=== PATIENT | male | born 1970 | race African-American/Black ===

== ENCOUNTER 2017-02-07 14:27 | Emergency (ER) | payer OTHER ==
[~2017-02-07] VITALS: Ht 190.5 cm; Wt 135.0 kg
[~2017-02-07 14:27] MED LIST: COLC1CAP3 PO; NAPR500T PO
[2017-02-07 14:28] VITALS: BP 144/74; PULSE 88; RESP 16; TEMP 98.2; O2SAT 99
[2017-02-07] MEDS ORDERED: IBUP800T23 PO (14:48)
--- NOTE | 2017-02-07 14:53 | PD ---
HPI Chief Complaint: Pain: Acute or Chronic Time Seen by Provider: 14:40 Travel History International Travel<30 days: No Contact w/Intl Traveler<30days: No Traveled to known affect area: No History of Present Illness HPI 46-year-old male presents for evaluation of right shoulder pain. He reports that 3 weeks ago he "slept on my right shoulder wrong"and since then he has had right shoulder pain. Pain is an aching pain primarily in the anterior aspect of the right shoulder which is worse with range of motion. He has limited range of motion associated with the pain. He has been using [id number] naproxen but symptoms persisted which prompted evaluation. He denies any numbness or tingling or chest pain or shortness of breath. He has no other complaints. His primary care physician is Dr. Hoyt. [facility] Past Medical History Gout: Yes Social History Alcohol Use: Yes (WEEKLY) Tobacco Use: Yes (2-3 CIGARS A NIGHT) Substance Use: No Allergies-Medications (Allergen,Severity, Reaction): Coded Allergies: No Known Allergies (Verified , 12/22/16) Reported Meds & Prescriptions Reported Meds & Active Scripts Active Ibuprofen 800 Mg Tab 800 Mg PO Q6HR PRN Colchicine 0.6 Mg Cap 0.6 Mg PO BID Reported Naproxen 500 Mg Tab 500 Mg PO DAILY Review of Systems Except as stated in HPI: all other systems reviewed are Neg Physical Exam Narrative GENERAL: Well-developed well-nourished male in no acute distress SKIN: Warm and dry. There is soft tissue swelling HEAD: Atraumatic. Normocephalic. EYES: Pupils equal and round. No scleral icterus. No injection or drainage. ENT: No nasal bleeding or discharge. Mucous membranes pink and moist. NECK: Trachea midline. No JVD. CARDIOVASCULAR: Regular rate and rhythm. No murmur appreciated. RESPIRATORY: No accessory muscle use. Clear to auscultation. Breath sounds equal bilaterally. MUSCULOSKELETAL: No obvious deformities. Pain with right shoulder range of motion. He is able to abduct his right shoulder to 70. He has pain with internal/external rotation. Has pain with passive range of motion of the right shoulder as well. There is no tenderness to palpation along the glenohumeral joint, clavicle, acromioclavicular joint of the right shoulder. There is no axillary lymphadenopathy. NEUROLOGICAL: Awake and alert. No obvious cranial nerve deficits. Motor grossly within normal limits. Normal speech. Data Data Last Documented VS Vital Signs Date Time Temp Pulse Resp B/P Pulse Ox O2 Delivery O2 Flow Rate FiO2 02/07/17 14:28 98.2 88 16 144/74 99 Orders Ketorolac Inj (Toradol Inj) (02/07/17 15:00) MDM Medical Decision Making Medical Screen Exam Complete: Yes Emergency Medical Condition: Yes Medical Record Reviewed: Yes Differential Diagnosis Right shoulder strain, rotator cuff tear, acromioclavicular separation, inflammatory arthritis, shoulder impingement Narrative Course 46-year-old male who reports that he slept on his right shoulder wrong presents now with 3 weeks of right shoulder pain with range of motion activities. Screening examination are consistent with shoulder strain. Patient will be discharged with 800 mg ibuprofen, sling for short-term use. Recommend follow- up with primary care physician in one week for recheck. Diagnosis Primary Impression: Right shoulder strain Qualified Code: S46.911A - Right shoulder strain, initial encounter Additional Instructions: Medication as needed. Take with meals. Sling for short-term 2-3 day use only. Perform passive range of motion actively several times a day as discussed. Follow-up with primary care physician in one week for recheck. Return for any emergent medical conditions. Med/Other Pt SpecificInfo: Prescription(s) given Scripts Ibuprofen 800 Mg Fal156 Mg PO Q6HR PRN (PAIN) #40 TAB Ref 0 Prov:Aide Cruz MD 02/07/17 Disposition: 01 DISCHARGE HOME Condition: Stable Fahad Alas Feb 07, 2017 14:53
[2017-02-07] MEDS ORDERED: KETOROLAC TROMETHAMINE 60 MG/2 ML (IM) VIAL IM ONE (15:00)
== END 2017-02-07 16:17 | disposition home or self-care (01) ==
LOC: NEPD 14:27
DX: S46.911A Strain of unspecified muscle, fascia and tendon at shoulder and upper arm level, right arm, initial encounter (principal); Z72.0 Tobacco use; Z87.39 Personal history of other diseases of the musculoskeletal system and connective tissue; X58.XXXA Exposure to other specified factors, initial encounter
CPT/HCPCS: 96372; 99284; J1885